=== PATIENT | female | born 1960 | race Caucasian/White ===

== ENCOUNTER 2023-09-10 15:10 | Outpatient (RCR) | payer OTHER, SELFPAY | END 2023-09-10 23:59 | disposition home or self-care (01) | LOC: RPT 15:10 | PROVIDERS: ATTENDING PHYSICIAN Obstetrics & Gynecology; PRIMARYCARE PHYSICIAN Registered Nurse | DX: R10.2 Pelvic and perineal pain (principal); N39.0 Urinary tract infection, site not specified; M62.89 Other specified disorders of muscle; Z73.6 Limitation of activities due to disability | CPT/HCPCS: 97110; 97162 ==

== ENCOUNTER 2023-10-11 10:44 | Outpatient (RCR) | payer OTHER, SELFPAY | END 2023-10-11 23:59 | disposition home or self-care (01) | LOC: RPT 10:44 | PROVIDERS: ATTENDING PHYSICIAN Obstetrics & Gynecology; PRIMARYCARE PHYSICIAN Registered Nurse | DX: R10.2 Pelvic and perineal pain (principal); N39.0 Urinary tract infection, site not specified; M62.89 Other specified disorders of muscle; Z73.6 Limitation of activities due to disability | CPT/HCPCS: 97110; 97535 ==

== ENCOUNTER 2023-11-01 10:47 | Outpatient (RCR) | payer OTHER, SELFPAY | END 2023-11-01 23:59 | disposition home or self-care (01) | LOC: RPT 10:47 | PROVIDERS: ATTENDING PHYSICIAN Obstetrics & Gynecology; PRIMARYCARE PHYSICIAN Registered Nurse | DX: R10.2 Pelvic and perineal pain (principal); N39.0 Urinary tract infection, site not specified; M62.89 Other specified disorders of muscle; Z73.6 Limitation of activities due to disability | CPT/HCPCS: 97110; 97112 ==

== ENCOUNTER 2023-11-18 12:50 | Outpatient (RCR) | payer OTHER, SELFPAY | END 2023-11-18 14:13 | disposition home or self-care (01) | LOC: RPT 12:50 | PROVIDERS: ATTENDING PHYSICIAN Obstetrics & Gynecology; PRIMARYCARE PHYSICIAN Registered Nurse | DX: R10.2 Pelvic and perineal pain (principal); N39.0 Urinary tract infection, site not specified; K62.89 Other specified diseases of anus and rectum; Z73.6 Limitation of activities due to disability | CPT/HCPCS: 97110; 97140 ==

== ENCOUNTER → 2023-12-23 13:37 | Outpatient (REF) | payer OTHER, SELFPAY | LOC: WDC 13:37 | PROVIDERS: ATTENDING PHYSICIAN Obstetrics & Gynecology; FAMILY PHYSICIAN Registered Nurse | DX: Z12.31 Encounter for screening mammogram for malignant neoplasm of breast (principal); M85.89 Other specified disorders of bone density and structure, multiple sites | CPT/HCPCS: 77063; 77067; 77080 ==

== ENCOUNTER → 2025-01-16 12:08 | Outpatient (REF) | payer OTHER, SELFPAY | LOC: WDC 12:08 | PROVIDERS: ATTENDING PHYSICIAN Obstetrics & Gynecology; FAMILY PHYSICIAN Registered Nurse | DX: Z12.31 Encounter for screening mammogram for malignant neoplasm of breast (principal) | CPT/HCPCS: 77063; 77067 ==

== ENCOUNTER → 2025-06-27 09:33 | Outpatient (REF) | payer OTHER, SELFPAY | LOC: WDC 09:33 | PROVIDERS: ATTENDING PHYSICIAN Obstetrics & Gynecology | DX: N63.14 Unspecified lump in the right breast, lower inner quadrant (principal) | CPT/HCPCS: 76642; 77061; 77065 ==